=== PATIENT | male | born 1935 | race Caucasian/White ===

== ENCOUNTER 2020-01-12 11:58 | Day surgery (SDC) | payer OTHER ==
[2020-01-12] VITALS (8 sets, daily range): BP systolic 106–177; BP diastolic 56–75
[~2020-01-12] VITALS: Ht 170.2 cm; Wt 63.1 kg
[2020-01-12] MEDS ORDERED: normal saline 1000ml 1,000 ML IV SCH (12:20)
[2020-01-12 13:06] LABS: BASOPHILS # (AUTO) 0.1 X10'3 (0-0.2); EOSINOPHILS # (AUTO) 0.3 X10'3 (0-0.9); EOSINOPHILS % (AUTO) 3.7 % (0-6); HEMATOCRIT 48.6 % (42.0-52.0); HEMOGLOBIN 16.3 g/dl (14.0-17.9); LYMPHOCYTES # (AUTO) 0.8 X10'3 (1.1-4.8); LYMPHOCYTES % (AUTO) 9.6 % (21-51); MEAN CORPUSCULAR HEMOGLOBIN 32.5 PG (27.0-31.0); MEAN CORPUSCULAR HGB CONC 33.5 g/dL (33.0-36.5); MEAN PLATELET VOLUME 10.9 FL (7.4-10.4); MONOCYTES # (AUTO) 0.8 X10'3 (0-0.9); MONOCYTES % (AUTO) 9.1 % (2-12); NEUTROPHILS # (AUTO) 6.7 X10'3 (1.8-7.7); NEUTROPHILS % (AUTO) 76.6 % (42-75); PLATELET COUNT 195 X10'3 (140-440); RED BLOOD COUNT 5.01 X10'6 (4.70-6.10); RED CELL DISTRIBUTION WIDTH 13.7 % (11.5-14.5); WHITE BLOOD COUNT 8.8 X10'3 (4.5-11.0)
[2020-01-12] MEDS ORDERED: FLO0.4C PO (13:19)
[2020-01-12] MEDS ORDERED: PRAV10TA39 PO (13:19)
[2020-01-12 13:20] LABS: ALBUMIN 4.7 G/DL (3.4-5.0); ANION GAP 6 (8-16); BLOOD UREA NITROGEN 19 MG/DL (7-18); BUN/CREATININE RATIO 13.4 (5.4-32.0); CHLORIDE 106 MMOL/L (99-107); CREATININE 1.42 MG/DL (0.60-1.10); GLUCOSE 86 MG/DL (70-104); MAGNESIUM 2.1 MG/DL (1.5-2.4); POTASSIUM 4.3 MMOL/L (3.5-5.1); SODIUM 143 MMOL/L (135-145); TOTAL CARBON DIOXIDE 30.9 MMOL/L (24-32); eGFR 48 ML/MIN
[2020-01-12] MEDS ORDERED: ESCI10TA61 PO (13:23)
[2020-01-12] MEDS ORDERED: MESA800T9 PO (13:23)
[2020-01-12] MEDS ORDERED: TRAZ-251 PO (13:23)
[2020-01-12] MEDS ORDERED: midazolam 2 mg/2 ml injection ONE ×2 (15:39→16:42)
[2020-01-12] MEDS ORDERED: LIDOcaine 1% W/epiNEPHrine 1:100,000 20ml vial ONE ×2 (15:39→16:58)
[2020-01-12] MEDS ORDERED: fentaNYL/PF 50MCG/1 ML 2ML syringe ONE ×2 (15:39→16:58)
[2020-01-12] MEDS ORDERED: ceFAZolin 1000mg inj ONE (15:40)
[2020-01-12 16:01] LABS: LARGE PLATELETS FEW; PLATELET ESTIMATE NORMAL
== END 2020-01-12 19:00 | disposition home or self-care (01) ==
LOC: SSTAY O 11:58
PROVIDERS: ATTEND Internal Medicine Cardiovascular Disease
DX: I49.5 Sick sinus syndrome (principal); I10 Essential (primary) hypertension; J44.9 Chronic obstructive pulmonary disease, unspecified; F41.9 Anxiety disorder, unspecified; G47.00 Insomnia, unspecified; Z98.890 Other specified postprocedural states; Z79.899 Other long term (current) drug therapy; Z86.73 Personal history of transient ischemic attack (TIA), and cerebral infarction without residual deficits
CPT/HCPCS: 33208; 36415; 71045; 80048; 83735; 85025; 85610; 93005; 99152; 99153; C1785; C1894; C1898; J0690; J2250; J3010; J7030; A4565; A4620; A6449